=== PATIENT | female | born 1965 ===

== ENCOUNTER 2024-11-13 13:23 | Outpatient (REF) | payer OTHER, SELFPAY ==
--- NOTE | ~2024-11-13 | XR_ITS ---
EXAMINATION: XR HIP 2 OR MORE VIEWS LEFT HISTORY: LEFT COMPARISON: There are no prior studies for comparison. FINDINGS: Two views of the left hip are submitted. Osseous mineralization is normal. There is no fracture or dislocation. The joint space is maintained. The soft tissues are unremarkable. XR/XR hip LT min 2V IMPRESSION: Unremarkable examination of the left hip. Electronically signed by: Teja Zhou MD 11/13/2024 02:31 PM EDT
--- OUTSIDE RECORDS SUMMARY | 2024-11-13 15:33 | XMS_ITS | Encounter Summary ---
Author Organization [facility] Address [address] 7t [place] [address] Care Team Providers Care Barrel Washer Machine Name Role Phone Candie Brown Primary Care Provider [phone] Encounter Details Date Type Department Care Team (Late st Contact Info) Description 01/21/2023 Abstract [facility] MEDICINE [address] [place] [id number] Candie Brown ANP [address] [place] [phone] Social History Tobacco Use Types Packs/Day Years Used Date Smoking Tobacco: Never Passive Smoke Exposure: Current Smokeless Tobacco: Never Alcohol Use Standard Drinks/Week Comments Not Currently 0 (1 standard drink = 0.6 oz pur e alcohol) Depression Answer Date Recorded Patient Health Questionnaire-2 Score 0 09/08/2022 Comments Unknown Sex and Gender Information Value Date Recorded Sex Assigned at Female 06/01/2022 10:14 AM EDT Legal Sex Female 10:14 AM EDT Gender Identity Female 06/01/2022 10:14 AM EDT Sexual Orientation Choose not to disclose 2021 10:14 AM EDT documented as of this encounter Plan of Treatment Upcoming Encounters Date Type Department Care Team (Late st Contact Info) Description 12/15/2024 11:00 AM EDT Office Visit [facility] MEDICINE [address] [place] [phone] Candie Brown ANP [address] [place] [address] 05/07/2025 3:00 PM EDT Office Visit [facility] ADULT DENTAL [address] [place] [phone] Ruth David documented as of this encounter Procedures Procedure Name Priority Date/Time Associated Diagnosis Comments MAMMOGRAPHY Routine 12/24/2022 1:46 PM EDT documented in this encounter Results * Mammography (12/24/2022 1:46 PM EDT) Mammogram Birads 2 Anatomical Region Laterality Modality Other Historical Provider HEALTH MAINTENANCE Final Result documented in this encounter Visit Diagnoses Not on filedocumented in this encounter Care Teams Barrel Washer Machine Relationship Specialty Start Date End Date Candie Brown ANP [address] [place] [address] PCP - General Family Medicine 07/15/20 documented as of this encounter
--- OUTSIDE RECORDS SUMMARY | 2024-11-13 15:33 | XMS_ITS | Encounter Summary ---
Author Organization [employer] Address [address] 7[address] [place] [address] Care Team Providers Care Braider Setter Name Role Phone Danii Rosenberg Primary Care Provider [phone] Encounter Details Date Type Department Care Team (Late st Contact Info) Description 11/28/2023 Orders Only [facility] MEDICINE [address] [place], [place] [phone] ProviderHammad MD Social History Tobacco Use Types Packs/Day Years Used Date Smoking Tobacco: Never Passive Smoke Exposure: Current Smokeless Tobacco: Never Alcohol Use Standard Drinks/Week Comments Not Currently 0 (1 standard drink = 0.6 oz pur e alcohol) Depression Answer Date Recorded Patient Health Questionnaire-9 Score 0 11/02/2023 Patient Health Questionnaire-9 Score 0 11/02/2023 Last PHQ-9: Questionnaire Data Not on file 0 11/02/2023 Housing Stability Answer Date Recorded What is your housing situation today? I have ele cruz 10/25/[address] you li ve. Do you have problems with any of the following? None of the above 10/25/2023 Food Insecurity Answer Date Recorded Within the past 12 months, y ou worried that your food would run out before you got money to buy more: Never True 10/25/2023 Within the past 12 months,th e food you bought just didn't last and you didn't have enough money to get more: Never True Transportation Answer Date Recorded In the past 12 months, has l ack of transportation kept you from medical appts, meetings, work or from getting things needed for daily living? No 10/25/2023 Utilities Answer Date Recorded In the past 12 months, has t he electric, gas, oil or water company threatened to shut off services in your home? No 10/25/2023 Depression Answer Date Recorded Patient Health Questionnaire-2 Score 0 11/02/2023 Comments Unknown Sex and Gender Information Value [...] Description 12/15/2024 11:00 AM EDT Office Visit [facility] MEDICINE [address] [place], [place] [phone] Danii Rosenberg ANP [address] [place], [place] [phone] 05/07/2025 3:00 PM EDT Office Visit [facility] ADULT DENTAL [address] [place], [place] [phone] Ruth David documented as of this encounter Procedures Procedure Name Priority Date/Time Associated Diagnosis Comments BI MAMMOGRAM SCREENING TOMOSYNTHESIS BILATERAL Routine 12/28/2023 1:38 PM EDT HM COLONOSCOPY Routine 06/24/2020 5:09 PM EST documented in this encounter Results * BI Mammogram Screening Tomosynthesis Bilateral (12/28/2023 1:38 PM EDT) Anatomical Region Laterality Modality Breast Bilateral Mammography 12/28/2023 1:38 PM EDT Narrative 01/24/2024 3:36 AM EDT ? [facility] ? [address] ?[place] [address] ? Mammography Report ? Signed ? Patient: Delgado Gonzalo,Lilia ?MR#: ?? [id number] ? : 1965 ?Acct:[id number] ? Age/Sex: 58 / F ?ADM Date: 05/28/24 ? Loc: HO.MAMMO ? Attending Dr: Danii Rosenberg LICENSED PHYSICAL THERAPIST ? Ordering Physician: DANII ROSENBERG NP ?Results: 1Negative ? Date of Service: 12/28/23 ?Follow Up: 1 Year From Orig ?? inal Mammogram ? Procedure(s): MM tomosynthesis screening BI ?? Accession Number(s): [id number] ? cc: DANII ROSENBERG NP ? EXAMINATION: ?? MM SCREENING DIGITAL BREAST TOMOSYNTHESIS, BILATERAL ? CLINICAL INFORMATION: ? Screening. Asymptomatic. ? COMPARISON: ?? Mammography: This study is compared with prior exams dating back to ?? 2019. ? TECHNIQUE: ?? Digital breast tomosynthesis is performed in both the craniocaudal and ?? mediolateral oblique views along with computer-aided detection (CAD). ?? Synthesized 2D images are generated from the tomosynthesis. ? FINDINGS: ?? The breasts are heterogeneously dense, which may obscure small masses ?? (ACR BI-RADS breast composition Category c). ? There are no significant masses, abnormal calcifications, or other ?? abnormalities. ? MM/MM tomosynthesis screening BI ?? IMPRESSION: ?? No mammographic evidence of malignancy. ? ASSESSMENT: ? BI-RADS BI-RADS 1 - Negative ? RECOMMENDATION: ?? Routine annual mammography screening. ? 1 year F/U ? This examination should not preclude the clinical evaluation of a ?? suspicious palpable abnormality. ? This patient's information was entered into a reminder system with a ?? target due date for their next mammogram. ? Dictated By: ?Sonam Moss MD ? Signed By: ?<Electronically signed by Sonam Moss MD in OV> ? 01/24/24 0332 ? DD/ 1338 ? TD/TT: ? Gate Watch: ? Procedure Note Donotrituinterpreter, Image - [facility] [address] [place] [address] Mammography Report Signed Patient: Lilia FierroMR#: [id number] : 1965Acct:[id number] Age/Sex: 58 / FADM Date: 12/28/23 Loc: HO.MAMMO Attending Dr: Danii Rosenberg NP Ordering Physician: DANII ROSENBERG NPResults: 1Negative Date of Service: 12/28/23Follow Up: 1 Year From Orig inal Mammogram Procedure(s): MM tomosynthesis screening BI Accession Number(s): [id number] cc: DANII ROSENBERG NP EXAMINATION: MM SCREENING DIGITAL BREAST TOMOSYNTHESIS, BILATERAL CLINICAL INFORMATION: Screening. Asymptomatic. COMPARISON: Mammography: This study is compared with prior exams dating back to 2019. TECHNIQUE: Digital breast tomosynthesis is performed in both the craniocaudal and mediolateral oblique views along with computer-aided detection (CAD). Synthesized 2D images are generated from the tomosynthesis. FINDINGS: The breasts are heterogeneously dense, which may obscure small masses (ACR BI-RADS breast composition Category c). There are no significant masses, abnormal calcifications, or other abnormalities. MM/MM tomosynthesis screening BI IMPRESSION: No mammographic evidence of malignancy. ASSESSMENT: BI-RADS BI-RADS 1 - Negative RECOMMENDATION: Routine annual mammography screening. 1 year F/U This examination should not preclude the clinical evaluation of a suspicious palpable abnormality. This patient's information was entered into a reminder system with a target due date for their next mammogram. Dictated By: Sonam Moss MD Signed By: <Electronically signed by Sonam Moss MD in OV> 01/24/24 0332 DD/ 1338 TD/TT: Gate Watch: Danii Rosenberg ANP IMG BI PROCEDURES Final Result * Hm Colonoscopy (06/24/2020 5:09 PM EST) Historical Provider MD HEALTH MAINTENANCE Final Result documented in this encounter Visit Diagnoses Not on filedocumented in this encounter Additional Health Concerns Assessment Noted Time PHQ-9 Depression Total Score: 0 11/02/19 24 1:49 PM EDT documented as of this encounter Care Teams Braider Setter Relationship Specialty Start Date End Date Danii Rosenberg, ROSIO [address] [place] [phone] PCP - General Family Medicine 07/15/20 documented as of this encounter
--- OUTSIDE RECORDS SUMMARY | 2024-11-13 15:33 | XMS_ITS | Encounter Summary ---
Author Organization [facility] Address [address] [facility] 7t [place] [address] Care Team Providers Care Line Dancer Name Role Phone Candie Brown Primary Care Provider [phone] Encounter Details Date Type Department Care Team (Latest Contact Info) Description 03/27/2021 Abstract [facility] CONVERSIONS Dental, Provider, DDS Social History Tobacco Use Types Packs/Day Years Used Date Smoking Tobacco: Never Assessed Comments Unknown Sex and Gender Information Value [...] Description 12/15/2024 11:00 AM EDT Office Visit [facility] MEDICINE [address] [place] [address] Candie Borwn ANP [address] [place] [address] 05/07/2025 3:00 PM EDT Office Visit [facility] ADULT DENTAL [address] [place] [address] Ruth David documented as of this encounter Visit Diagnoses Not on filedocumented in this encounter Care Teams Line Dancer Relationship Specialty Start Date End Date Candie Brown ANP [address] [place] [address] PCP - General Family Medicine 07/15/20 documented as of this encounter
--- OUTSIDE RECORDS SUMMARY | 2024-11-13 15:33 | XMS_ITS | Encounter Summary ---
Author Organization [employer] Address [address] [place] [address] Care Team Providers Care Errand Runner Name Role Phone Candie Brown ROSIO Primary Care Provider [phone] Reason for Visit * Reason Comments Numbness Encounter Details Date Type Department Care Team ([facility] st Contact Info) Description 11/08/2024 2:00 PM EDT Office Visit [facility] [address] [place], [place] [phone] María Hwang MD [address] [place], [place] [phone] Left hip pain (Primary Dx) Social History Tobacco Use Types Packs/Day Years Used Date Smoking Tobacco: Never Passive Smoke Exposure: Current Smokeless Tobacco: Never Alcohol Use Standard Drinks/Week Comments Not Currently 0 (1 standard drink = 0.6 oz pur e alcohol) Depression Answer Date Recorded Patient Health Questionnaire-9 Score 2 11/01/2024 Patient Health Questionnaire-9 Score 2 11/01/2024 Last PHQ-9: Questionnaire Data Not on file 0 11/01/2024 Housing Stability Answer Date Recorded What is your housing situation today? I am not s ure 11/01/[address] you li ve. Do you have problems with any of the following? None of the above 11/01/2024 Food Insecurity Answer Date Recorded Within the past 12 months, y ou worried that your food would run out before you got money to buy more: Never True 11/01/2024 Within the past 12 months,th e food you bought just didn't last and you didn't have enough money to get more: Never True 09/2024 Transportation Answer Date Recorded In the past 12 months, has l ack of transportation kept you from medical appts, meetings, work or from getting things needed for daily living? No 11/01/2024 Utilities Answer Date Recorded In the past 12 months, has t he electric, gas, oil or water company threatened to shut off services in your home? No 11/01/2024 Depression Answer Date Recorded Patient Health Questionnaire-2 Score 2 11/01/2024 Internet Access Answer Date Recorded Internet Access Q1 No 11/01/2024 Internet Access Q2 I do not want or need it 09/2024 Comments Unknown Sex and Gender Information Value Date Recorded Sex Assigned at Female 06/01/2022 10:14 AM EDT Legal Sex Female 10:14 AM EDT Gender Identity Female 06/01/2022 10:14 AM EDT Sexual Orientation Choose not to disclose 2021 10:14 AM EDT documented as of this encounter Last Filed Vital Signs Vital Sign Reading Time Taken Comments Blood Pressure 107/64 11/08/2024 2:09 PM EDT Pulse 64 11/08/2024 2:09 PM EDT Temperature 36.8 ??C (98.3 ??F) 11/08/2024 2:09 PM ED T Respiratory Rate 20 11/08/2024 2:09 PM EDT Oxygen Saturation 98% 11/08/2024 2:09 PM EDT Inhaled Oxygen Concentration - - Weight 53.2 kg (117 lb 3.2 oz) 11/08/2024 2:09 P M EDT Height - - Body Mass Index 17.31 03/17/2024 1:05 PM EDT documented in this encounter Progress Notes * Michelle Negrete - 11/08/2024 2:00 PM EDT Subjective Patient ID: Lilia Delgado is a 59 y.o. female with past medical history of hemorrhoids, insomnia and migraines who presents to walk in clinic for Numbness. Pt reports she has decreased sensation to her anterior left leg that starts at upper hip and down the whole leg. She describes the sensation as a heavy feeling when she walks. This has been ongoing for about 2 days, but worse this morning. Review of Systems Constitutional: Negative for fever and unexpected weight change. Respiratory: Negative for shortness of breath. Cardiovascular: Negative for chest pain. Gastrointestinal: Negative for abdominal pain. Genitourinary: Negative for difficulty urinating. Musculoskeletal: Leg pain Objective Visit Vitals BP 107/64 (BP Location: Left arm, Patient Position: Sitting, BP Cuff Size: Adult) Pulse 64 Temp 98.3 ??F (36.8 ??C) (Oral) Resp 20 Wt 117 lb 3.2 oz (53.2 kg) SpO2 98% BMI 17.31 kg/m?? Smoking Status Never BSA 1.61 m?? Physical Exam Constitutional: Appearance: Normal appearance. Cardiovascular: Rate and Rhythm: Normal rate and regular rhythm. Heart sounds: Normal heart sounds. Pulmonary: Effort: Pulmonary effort is normal. Breath sounds: Normal breath sounds. Musculoskeletal: Right hip: Normal. Left hip: Tenderness (at bursa join) present. Normal range of motion. Right upper leg: Normal. Left upper leg: Normal. Neurological: General: No focal deficit present. Mental Status: She is alert. Psychiatric: Behavior: Behavior normal. Problem List Items Addressed This Visit Left hip pain - Primary Upon pt description denied any numbness and reported more of a heaviness/pain at the left hip, exacerbated with walking. Likely musculoskeletal, less likely inflammatory, versus bursitis of the hip. -ordered XR of left hip 11/08/24 -prescribed cyclobenzaprine (Flexeril) 10 MG 11/08/24 Relevant Medications cyclobenzaprine (Flexeril) 10 MG tablet Other Relevant Orders XR Hip 2 or 3 Views Left -No evidence of acute disease process. Suspect musculoskeletal left hip strain. Symptoms mild. -Will treat with muscle relaxer and ordered XRs. -ER precautions discussed. -Seek medical attention for worsening symptoms. I, Michelle Negrete, am serving as a scribe to document services personally performed by Dr. Adams, based on the patient's response to questions by provider and providers statements to me. documented in this encounter Miscellaneous Notes * Assessment & Plan Note - Michelle Negrete - 11/08/2024 2:25 PM EDTAssociated Problem(s): Left hip pain Upon pt description denied any numbness and reported more of a heaviness/pain at the left hip, exacerbated with walking. Likely musculoskeletal, less likely inflammatory, versus bursitis of the hip. -ordered XR of left hip 11/08/24 -prescribed cyclobenzaprine (Flexeril) 10 MG 11/08/24 documented in this encounter Plan of Treatment Upcoming Encounters Date Type Department Care Team (Late st Contact Info) Description 12/15/2024 11:00 AM EDT Office Visit [facility] MEDICINE [address] [place] [address] Candie Brown ANP [address] [place] [address] 05/07/2025 3:00 PM EDT Office Visit [facility] ADULT DENTAL [address] [place] [address] Ruth David Scheduled Orders Name Type Priority Associated Diagnoses Orde r Schedule XR Hip 2 or 3 Views Left Imaging Routine Left hip pain Expected: 11/08/2024, Expires: 11/08/2025 documented as of this encounter Visit Diagnoses Diagnosis Left hip pain- Primary Pain in joint, pelvic region and thigh documented in this encounter Additional Health Concerns Assessment Noted Time PHQ-9 Depression Total Score: 2 11/02/19 25 4:08 PM EDT documented as of this encounter Care Teams Errand Runner Relationship Specialty Start Date End Date Candie Brown ANP [address] [place] [phone] PCP - General Family Medicine 07/15/20 documented as of this encounter
--- OUTSIDE RECORDS SUMMARY | 2024-11-13 15:33 | XMS_ITS | Clinical Summary ---
Author Organization [employer] Address [address] [facility] 7t [place] [address] Care Team Providers Care Community Facilitator Name Role Phone Danii Rosenberg Primary Care Provider [phone] Allergies No known active allergies Medications Sodium Fluoride (PreviDent) 1.1 % gel Use at bed time every night spit do not rinse for 30 min. 1 Active omeprazole (PriLOSEC) [address] sky Scott PSULA TODOS LOS D BEFORE A MEAL 2 Active cholecalciferol (Vitamin D-3) 25 MCG (1000 UT) tablet take 1 tablet once a day PO 0 Active Multiple Vitamin (multivitamin) capsule Take 1 capsule by mouth Once per day. Active cyclobenzaprine (Flexeril) 10 MG tabletIndicatio ns:Left hip pain One tab po at bedtime prn pain of muscles, do not drive with medicaion 5 tablet 5 Active Active Problems Problem Noted Date Diagnosed Date Left hip pain 11/08/2024 Assessment & Plan (11/08/2024 2:25 PM EDT): Upon pt description denied any numbness and reported more of a heaviness/pain at the left hip, exacerbated with walking. Likely musculoskeletal, less likely inflammatory, versus bursitis of the hip. -ordered XR of left hip 11/08/24 -prescribed cyclobenzaprine (Flexeril) 10 MG 11/08/24 Cardiovascular event risk 10/26/2022 Overview (10/26/2022): ASCVD risk Low 1.5% 09/2022 Healthcare maintenance 09/08/2022 Overview (09/08/2022): Eye exam: refer 09/08/22 Colon ca screening (45+): 07/2020, repeat in 2024 d/t fam hx colon ca in brother at 52 Mammo (40-74, or ongoing in >10yr life expectancy): BIRADS 3 06/2022, repeat Mar 2023 DEXA (F 65+, M 70+; with risk factors, earlier): NA Pap (21-65 & ongoing in >10yr life expectancy): follows w/ [facility] and is UTD IZs including COVID-19 vaccines: declines flu, due for shingrix 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 Migraine 09/12/2018 Overview (09/08/2022): Tylenol prn, declined Fioricet refill 09/2022 Vitamin D deficiency 07/27/2017 Insomnia 07/27/2017 Ankle pain 07/27/2017 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 Hemorrhoids 07/27/2017 Non-cardiac chest pain 04/09/2017 Overview (09/08/2022): Normal echo 07/2021 No ischemia on stress test 2016 Better w/ PPI, now resolved Encounters Date Type Department Care Team Description 11/08/2024 2:00 PM EDT Office Visit [facility] [address] [place] [address] María Hwang MD Left hip pain (Primary Dx) 11/08/2024 Telephone [facility] [address] [place] [address] Danii Rosenberg ANP Nurse Triage 11/01/2024 3:45 PM EDT Office Visit [facility] [address] [place] [phone] Danii Rosenberg ANP Moderate protein-calorie malnutrition (CMS/HCC) (Primary Dx); Anorexia 11/01/2024 Travel 10/30/2024 1:30 PM EDT Office Visit [facility] [address] [place] [address] Adolph Jean DMD 10/23/2024 3:00 PM EDT Office Visit [facility] [address] [place] [address] Ruth David Dental calculus (Primary Dx) 09/06/[address] [address] Amee Hardy [place] 09/06/[address] [address] Amee Hardy [place] october recall (Called pt to book appt for October for weight and back pain f/jada ,pt no answer left ,sending letter) 09/01/2024 Patient Outreach [address] [address] Danii Rosenberg ANP Pre-visit Planning (Pre-visit planning - LVM ) 08/25/2024 Telephone [facility] [address] [place] [address] Marguerite Delgado NE October recall 08/18/2024 1:15 PM EST Office Visit [address] [address] Danii Rosenberg ANP Upper back pain (Primary Dx); Acute pain of left shoulder 08/18/2024 Travel from Last 3 Months Immunizations Name Administration Dates Next Due Hep B, adult 01/06/2011,07/16/2010,02/24/2002 Influenza injectable quadriv alent preservative free 05/31/2020 Influenza, IIV3, injectable 08/06/2014, 9 Moderna Covid-19 Vaccine 12+ 11/07/2020,10/11/19 21 TD (adult), 2 Lf tetanus tox oid, preservative free, adsorbed 08/26/2020,06/28/1995 Tdap 07/16/2010 Family History Medical History Relation Name Comments Coronary artery disease Brother Coronary artery disease Father Brain cancer Mother Coronary artery disease Mother Breast cancer Sister Relation Name Status Comments Brother Father Mother Sister Social History Tobacco Use Types Packs/Day Years Used Date Smoking Tobacco: Never Passive Smoke Exposure: Current Smokeless Tobacco: Never Tobacco Cessation:Counseling Given: Not Answered Alcohol Use Standard Drinks/Week Comments Not Currently [...] not to disclose 2021 10:14 AM EDT Last Filed Vital Signs Vital Sign Reading [...] oz) 11/08/2024 2:09 P M EDT Height 175.3 cm (5' 9 ) 03/17/2024 1:05 PM EDT Body Mass Index 17.31 03/17/2024 1:05 PM EDT Plan of Treatment Upcoming Encounters Date Type Department Care Team (Late st Contact Info) Description 12/15/2024 11:00 AM EDT Office Visit [facility] [address] [place] [address] Danii Rosenberg, ANP [address] [place], [place] [phone] 05/07/2025 3:00 PM EDT Office Visit [facility] [address] [place], [place] [phone] Ruth David Health Maintenance Due Date Last Done Comments CT Colonography 1965 FIT DNA/Cologuard 1965 FIT 1965 FOBT 1965 Sigmoidoscopy 1965 Pneumococcal Vaccine: 50+ Years (1 of 1 - PCV) 2014 Zoster Vaccines (1 of 2) 2014 COVID-19 Vaccine (3 - season) 2024 11/07/2020, 10/10/2020 Influenza Vaccine (#1) 2024 , 08/06/2014, 07/17/2009 RSV Patients and Patients Aged 60 years or older (1 - Risk 60-74 years 1-dose series) 2024 Mammogram 12/27/2024 12/28/2023, 12/01, 12/24/2022, Additional history exists Dental Oral Exam 04/26/2025 10/23/2024, , 03/24/2021, Additional history exists Dental Prophylaxis 04/26/2025 10/23/2024, 0 04/26/2024, 03/27/2021, Additional history exists Colonoscopy 06/24/2025 06/24/2020 Colorectal Cancer Screening 06/24/2025 Dental X-Ray: Bitewings 10/24/2025 10/24/19, 03/24/2021, 03/29/2015, Additional history exists Alcohol/Substance Use Screening 11/01/2025 11/01/2024 Depression Screening 11/01/2025 11/01/2024, 11/02/19 SDOH Screening 11/01/2025 11/01/2024 Tobacco Screening 11/01/2025 11/01/2024 Pap Smear 11/23/2025 11/23/2022, 10/07/2022 Cervical Cancer Screening 10/08/2027 HPV/Cotest 10/08/2027 10/07/2022 Dental X-Ray: Full Mouth 10/25/2027 025, 03/24/2021, 04/27/2013 DTaP/Tdap/Td Vaccines (3 - Td or Tdap) 08/26/2030 08/26/2020, 07/16/2010, 06/28/1995 Hepatitis B Vaccines Completed 01/06/2011, 07/16/2010, 02/24/2002 HIV Screening Completed 10/12/2022 Hepatitis C Screening Completed 10/12/2022 HIB Vaccines Aged Out No longer eligi ble based on patient's age to complete this topic HPV Vaccines Aged Out No longer eligi ble based on patient's age to complete this topic Hepatitis A Vaccines Aged Out No long er eligible based on patient's age to complete this topic IPV Vaccines Aged Out No longer eligi ble based on patient's age to complete this topic Meningococcal Vaccine Aged Out No alvarez naresh eligible based on patient's age to complete this topic RSV under 20 months Aged Out No longe r eligible based on patient's age to complete this topic Rotavirus Vaccines Aged Out No longer eligible based on patient's age to complete this topic Procedures Procedure Name Priority Date/Time Associated Diagnosis Comments CASE PRESENTATION, DETAILED AND EXTENSIVE TREATMENT PLANNING Routine 10/30/2024 1:30 PM EDT DENTURE ADJUSTMENT Routine 10/30/2024 1: 30 PM EDT 7 ML RESIN-BASED COMPOSITE - 2 SURF, ANTERIOR Routine 10/30/2024 1:30 PM EDT PERIODIC ORAL EVALUATION - ESTABLISHED PATIENT Routine 10/23/2024 3:00 PM EDT ORAL HYGIENE INSTRUCTIONS Routine 10/23/2024 3:00 PM EDT Dental calculus INTRAORAL - COMPLETE SERIES OF RADIOGRAPHIC IMAGES Routine 10/23/2024 3:00 PM EDT PROPHYLAXIS - ADULT Routine 10/23/2024 3 :00 PM EDT Dental calculus CASE PRESENTATION, DETAILED AND EXTENSIVE TREATMENT PLANNING Routine 10/23/2024 3:00 PM EDT 12 DO AMALGAM FILLING Routine 10/23/2024 12:00 AM EDT BI MAMMOGRAM SCREENING TOMOSYNTHESIS BILATERAL Routine 12/28/2023 1:38 PM EDT PAP SMEAR Routine 11/23/2022 1:15 PM EDT HEPATITIS C AB W/REFL TO HCV RNA, QN, PCR Routine 10/12/2022 10:51 AM EDT Routine screening for STI (sexually transmitted infection) HIV 1/2 ANTIGEN/ANTIBODY, FOURTH GENERATION W/RFL Routine 10/12/2022 10:51 AM EDT Routine screening for STI (sexually transmitted infection) HPV MRNA E6/E7 REFLEX TO HPV 16, 18/45 Routine 10/07/2022 9:53 AM EST HM COLONOSCOPY Routine 06/24/2020 5:09 PM EST from Last 3 Months or Most Recently Relevant to Health Maintenance Results * BI Mammogram Screening Tomosynthesis Bilateral (12/28/2023 1:38 PM EDT) Anatomical Region Laterality Modality Breast Bilateral Mammography 12/28/2023 1:38 PM EDT Narrative 01/24/2024 3:36 AM EDT ? [facility] [place] ? [address] [facility] ?[place] [address] ? Mammography Report ? Signed ? Patient: Delgado Gonzalo,Lilia ?MR#: ?? [id number] ? : 1965 ?Acct:[id number] ? Age/Sex: 58 / F ?ADM Date: 05/28/24 ? Loc: HO.MAMMO ? Attending Dr: Danii Rosenberg DIVISION SERVICE MANAGER ? Ordering Physician: DANII ROSENBERG NP ?Results: 1Negative ? Date of Service: 12/28/23 ?Follow Up: 1 Year From Orig ?? inal Mammogram ? Procedure(s): MM tomosynthesis screening BI ?? Accession Number(s): [id number] ? cc: DANII ROSENBERG NP ? EXAMINATION: [...] in OV> ? 01/24/24 0332 ? DD/ ? TD/TT: ? Correspondence Coordinator: ? Procedure Note Donotuseinterpreter, Image - 01/24/2024 [facility] [address] [place] [address] Mammography Report Signed Patient: Ferny Fierro#: [id number] : 1965Acct:[id number] Age/Sex: 58 / FADM Date: 12/28/23 Loc: HO.MAMMO Attending Dr: Danii Rosenberg DIVISION SERVICE MANAGER Ordering Physician: DANII ROSENBERG NPResults: 1Negative Date of Service: 12/28/23Follow Up: 1 Year From Orig inal Mammogram Procedure(s): MM tomosynthesis screening BI Accession Number(s): [id number] cc: DANII ROSENBERG NP EXAMINATION: MM SCREENING [...] in OV> 01/24/24 0332 DD/ 1338 TD/TT: Correspondence Coordinator: Danii Rosenberg ANP IMG BI PROCEDURES Final Result * Pap Smear (11/23/2022 1:15 PM EDT) 11/23/2022 1:15 PM EDT 11/24/2022 8:45 AM EDT Ashwini [facility] - 11/30/2022 2:11 PM EDT ----- ------- Name: DelgadoLilia ? Age/Sex: 57/F ? : 1965 Unit#: [id number] ?? Attend Dr: Brian Spring MD ?Re11/23/22 ?Status: DEP REF ? Location: HO.LNP ?Disch: ? ----- ------- SPEC : [id number] ? RECD: 11/24/22-844 ? STATUS: ??SOUT ? REQ NUM: [id number] ? ROBBIE: 11/23/22-2 ? SUBM DR: Brian Spring MD ? ENTERED: ??11/24/22-938 ?SP TYPE: Pap Smr ?OTHR DR: DANII ROSENBERG NP ? ORDERED: ??Pap Smear ? Interpretation ?? Satisfactory for evaluation. ?? Negative for intraepithelial lesion or malignancy. ?? Atrophic. ?Clinical Information LMP: Post menopause Previous PAP test: 09/2022, Unknown ? Material Received ?? ThinPrep-Cervical Copies To: ?? DANII ROSENBERG NP ?? [address] [facility] [address] ?? [place] [address] ?? [phone] ?? Brian Spring MD ?? [address] [facility] [address] ?? [place] [address] ?? [phone] ----- ------- Signed (signature on file) [place] Yusuf Nafisa 11/30/22 1411 ? ----- ------- ? END OF REPORT ? [facility] External Provider LAB CYT OLOGY ORDERABLES Final Result Performing Organization Address [facility]/ZIP Co de Phone Number [facility] [address] [place] [address] [phone] * Hepatitis C Antibody with Reflex to HCV, RNA, Quantitative, Real-Time PCR (10/12/2022 10:51 AM EDT) Hepatitis C Antibody NON-REACT DEYANIRA NON-REACT DEYANIRA [facility] [place] [facility] Index 0.06 <1.00 [employer] [facility] [place] [facility] Comment: HCV antibody was non-reactive. There is no laboratory evidence of HCV infection. In most cases, no further action is required. However, if recent HCV exposure is suspected, a test for HCV RNA (test code 09944) is suggested. For additional information please refer to http://education.2Checkout/faq/DFJ41a0 (This link is being provided for informational/ educational purposes only.) Blood Venous blood specimen / Unknown 10/12/2022 10:51 AM EDT 10/12/2022 10:52 AM EDT Narrative [facility] - 10/12/2022 10:01 PM EDT FASTING:YES FASTING: YES [facility] LAB BLOOD ORDERABLES Final Resul t Performing Organization Address City/[facility] [address]/ZIP Co de Phone Number [facility] [address] [facility], [address], [place] [address] [facility] [facility] [place] [facility] [address] [facility], ([address]) [place] [address] * HIV-1/2 Antigen and Antibodies, Fourth Generation, with Reflexes (10/12/2022 10:51 AM EDT) HIV Antigen/Antibody, 4th Generation NON-REAC TIVE NON-REAC TIVE [facility] [place] [facility] Comment: HIV-1 antigen and HIV-1/HIV-2 antibodies were not detected. There is no laboratory evidence of HIV infection. PLEASE NOTE: This information has been disclosed to you from records whose confidentiality may be protected by state law. ??If your state requires such protection, then the state law prohibits you from making any further disclosure of the information without the specific written consent of the person to whom it pertains, or as otherwise permitted by law. A general authorization for the release of medical or other information is NOT sufficient for this purpose. ?? For additional information please refer to http://PubNub.2Checkout/faq/SDX270 (This link is being provided for informational/ educational purposes only.) The performance of this assay has not been clinically validated in patients less than 2 years old. Blood Venous blood specimen / Unknown 10/12/2022 10:51 AM EDT 10/12/2022 10:52 AM EDT Narrative [facility] - 10/12/2022 10:01 PM EDT FASTING:YES FASTING: YES [facility] LAB BLOOD ORDERABLES Final Resul t [facility] [address], [place] [address] [facility] [place] [employer] [address] , ([address]) [place] [address] * HPV mRNA E6/E7 w/Reflex to HPV Genotypes 16, 18/45 (10/07/2022 9:53 AM EST) HPV nRNA E6/E7 Not Detected Not Detected [facility] Comment:Methodology: Transcr iption-Mediated AmplificationThis assay detects E6/E7 viral messenger RNA (mRNA) from 14high-risk HPV types (16,18,31,33,35,39,45,51,52,56,58,59,66,68).Cervical sources are required for HPV testing.If a vaginal source from a patient who has had atotal hysterectomy with removal of cervix wassubmitted, please contact the testing laboratoryfor alternative testing options.For additional information, please refer tohttp://education.2Checkout/faq/EKU915k0(This link if provided for information/educational purposes only.)THIS TEST WAS PERFORMED AT:[facility] [place] [phone] LARKIN MD HPV mRNA E6/E7 TNP [facility] HPV 16 RNA TNP [facility] HPV 18/45 RNA [facility] 10/07/2022 9:53 AM EST 10/07/2022 4:45 PM EST [facility] External Provider LAB CYT OLOGY ORDERABLES Final Result [facility] [address] [place] [address] [phone] * Hm Colonoscopy (06/24/2020 5:09 PM EST) Historical Provider HEALTH MAINTENANCE Final Result from Last 3 Months or Most Recently Relevant to Health Maintenance Insurance [facility] PARTIAL DENTAL - HSN PARTIAL (MEDICAID) Care Teams Community Facilitator Relationship Specialty Start Date End Date Danii Rosenberg ANP [address] [place] [phone] PCP - General Family Medicine 07/15/20
--- OUTSIDE RECORDS SUMMARY | 2024-11-13 15:33 | XMS_ITS | Encounter Summary ---
Author Organization [employer] Address [address] [facility] 7t [place] [address] Care Team Providers Care Canvas Goods Fabricator Name Role Phone Candie Brown Primary Care Provider [phone] Reason for Visit * Reason Onset Date Comments Hospital Follow-up 12/01/2023 Encounter Details Date Type Department Care Team ([facility] st Contact Info) Description 12/01/2023 Telephone [facility] [address] [place], [place] [phone] Candie Brown ANP [address] [place], [place] [phone] Hospital Follow-up Social History Tobacco Use Types Packs/Day Years [...] AM EDT documented as of this encounter Miscellaneous Notes * Telephone Encounter - Allison Long - 12/01/2023 10:37 AM EDT Tc from pt requesting a HDF appt. Hospital: [facility] Date of admission: 11/27 Discharge date: 11/29 Diagnosed: Weakness documented in this encounter Plan of Treatment Upcoming Encounters Date Type Department Care Team (Late st Contact Info) Description 12/15/2024 11:00 AM EDT Office Visit [facility] [address] [place] [phone] Candie Brown ANP [address] [place] [address] 05/07/2025 3:00 PM EDT Office Visit [facility] [address] [place] [address] Ruth David documented as of this encounter Visit Diagnoses Not on filedocumented in this encounter Additional Health Concerns Assessment Noted Time PHQ-9 Depression Total Score: 0 11/02/19 24 1:49 PM EDT documented as of this encounter Care Teams Canvas Goods Fabricator Relationship Specialty Start Date End Date Candie Brown ANP [address] [place] [address] PCP - General Family Medicine 07/15/20 documented as of this encounter
--- OUTSIDE RECORDS SUMMARY | 2024-11-13 15:33 | XMS_ITS | Encounter Summary ---
Author Organization [employer] Address [address] [facility] 7t [place] [address] Care Team Providers Care Foundry Helper Name Role Phone Candie Brown Primary Care Provider [phone] Reason for Visit * Reason Onset Date Comments Nurse Triage 11/08/2024 Encounter Details Date Type Department Care Team ([facility] st Contact Info) Description 11/08/2024 Telephone [facility] [address] [place], [place] [phone] Candie Brown ANP [address] [place] [address] Nurse Triage Social History Tobacco Use Types Packs/Day Years [...] encounter Miscellaneous Notes * Telephone Encounter - Ashley ChaparroBETSY - 11/08/2024 12:00 PM EDT Triage call returned to patient with BLS Sanjana [address]. Patient reports that she woke up this morning and was found to have numbness of left leg. Patient without accident or injury. Has numbness thatshe report is the whole leg . Presented to [facility] and is in parking lot now. Is ambulatory by description of activities. Kathleen was given PCP appt for November by [facility] and advised that Triage would call her. Patient advised to return to [facility] now for evaluation after [facility] reopens at 2pm. Disposition reviewed and patient in agreement with plan. No PCP or Team appts available at time of call. [facility] hours and availability provided. Triage nurse informed the patient may have a wait of 1-2 hours because Walk In [facility] may have delays from patient's walking in with urgent medical needs. Insurance verified as active prior to booking and pt notified. Protocol Used: Neurologic Deficit (Adult) Protocol-Based Disposition: Go to Office or Video Visit Now Override (Final) Disposition: Go to Urgent Care Now Override Reason: No appointments available Positive Triage Question: * Tingling (e.g., pins and needles) of the face, arm or leg on one side of the body, that is present now (Exceptions: Chronic or recurrent symptom lasting > 4 weeks; or from known cause, such as: bumped elbow, carpal tunnel, pinched nerve.) * All higher-acuity triage questions were negative * Telephone Encounter - Lupe Hernandez - 11/08/2024 10:20 AM EDT Symptom: Numbness (left leg) Outcome: Schedule an urgent appointment (within 1 hour) or talk to a nurse or provider soon Reason: Getting worse The caller accepted this outcome. [phone] arabic documented in this encounter Plan of Treatment Upcoming Encounters Date Type Department Care Team (Late st Contact Info) Description 12/15/2024 11:00 AM EDT Office Visit [facility] [address] [place] [address] Candie Brown ANP [address] [place] [address] 05/07/2025 3:00 PM EDT Office Visit [facility] [address] [place] [address] Ruth David documented as of this encounter Visit Diagnoses Not on filedocumented in this encounter Additional Health Concerns Assessment Noted Time PHQ-9 Depression Total Score: 2 11/02/19 25 4:08 PM EDT documented as of this encounter Care Teams Foundry Helper Relationship Specialty Start Date End Date Candie Brown ANP [address] [place] [phone] PCP - General Family Medicine 07/15/20 documented as of this encounter
== END 2024-11-13 13:24 | disposition home or self-care (01) ==
LOC: HO.HHCX 13:23
PROVIDERS: Visit Provider Family Medicine
DX: M25.552 Pain in left hip (principal)
CPT/HCPCS: 73502